=== PATIENT | female | born 1985 | race African-American/Black ===

== ENCOUNTER 2016-11-15 18:29 | Emergency (ER) | payer OTHER ==
[~2016-11-15] VITALS: Ht 180.3 cm; Wt 97.5 kg
[~2016-11-15 18:29] MED LIST: ACCUNEB SO1.25 MG/1; APAP/CODEINE ELI5 M1; IBUPROFEN 600600 M1 PO; IBUPROFEN 800800 M1 PO; IRON PO; LORTAB 5 MG/5001 TA1 PO; NORCO 5-325 TA1 EACH PO; POLYMYXIN B/TMP10 ML OP; PRENATAL PO; ROBITUSSIN100 MG/53; TOPAMAX 25 MG T25 M1 PO; ZOFRAN 4 MG ORAL4 MG DISSOLVE
== END 2016-11-15 19:54 | disposition home or self-care (01) ==
LOC: ER 18:29
DX: S05.02XA Injury of conjunctiva and corneal abrasion without foreign body, left eye, initial encounter (principal); J45.909 Unspecified asthma, uncomplicated; G43.909 Migraine, unspecified, not intractable, without status migrainosus; F17.210 Nicotine dependence, cigarettes, uncomplicated; W22.8XXA Striking against or struck by other objects, initial encounter; Y93.89 Activity, other specified; Y92.89 Other specified places as the place of occurrence of the external cause; Y99.8 Other external cause status

== ENCOUNTER 2017-03-28 10:57 | Emergency (ER) | payer OTHER ==
[~2017-03-28] VITALS: Ht 177.8 cm; Wt 99.8 kg
[2017-03-28 11:42] VITALS: BP 135/97
[2017-03-28] MEDS ORDERED: CIPROFLOXIN HC2.5 M1 OPHTHALMIC (12:07)
[2017-03-28] MEDS ORDERED: MOBIC15 MG PO (12:07)
== END 2017-03-28 12:31 | disposition home or self-care (01) ==
LOC: ER 10:57
DX: S05.02XA Injury of conjunctiva and corneal abrasion without foreign body, left eye, initial encounter (principal); J45.909 Unspecified asthma, uncomplicated; G43.909 Migraine, unspecified, not intractable, without status migrainosus; F17.210 Nicotine dependence, cigarettes, uncomplicated; Z86.2 Personal history of diseases of the blood and blood-forming organs and certain disorders involving the immune mechanism; X58.XXXA Exposure to other specified factors, initial encounter; Y93.89 Activity, other specified; Y92.89 Other specified places as the place of occurrence of the external cause; Y99.8 Other external cause status

== ENCOUNTER 2017-07-21 09:13 | Emergency (ER) | payer OTHER ==
[~2017-07-21] VITALS: Ht 180.3 cm; Wt 95.3 kg
[~2017-07-21 09:13] MED LIST changes: +CIPROFLOXIN HC2.5 M1 OPHTHALMIC; +MOBIC15 MG PO
== END 2017-07-21 10:11 | disposition home or self-care (01) ==
LOC: ER 09:13
DX: J02.0 Streptococcal pharyngitis (principal); J45.909 Unspecified asthma, uncomplicated; G43.909 Migraine, unspecified, not intractable, without status migrainosus; F17.210 Nicotine dependence, cigarettes, uncomplicated

== ENCOUNTER 2018-02-02 19:23 | Emergency (ER) | payer OTHER ==
[~2018-02-02] VITALS: Ht 180.3 cm; Wt 104.3 kg
[2018-02-02] MEDS ORDERED: OSELB75 PO (19:41)
[2018-02-02 21:11] VITALS: BP 133/76
== END 2018-02-02 21:12 | disposition home or self-care (01) ==
LOC: ER 19:23
DX: J02.0 Streptococcal pharyngitis (principal); F17.210 Nicotine dependence, cigarettes, uncomplicated; J45.909 Unspecified asthma, uncomplicated; G43.909 Migraine, unspecified, not intractable, without status migrainosus; Z86.2 Personal history of diseases of the blood and blood-forming organs and certain disorders involving the immune mechanism; Z98.890 Other specified postprocedural states; Z90.10 Acquired absence of unspecified breast and nipple